=== PATIENT | female | born 1960 | race Caucasian/White ===

== ENCOUNTER 2022-06-26 11:12 | Outpatient (CLI) | payer OTHER | END 2022-06-26 11:13 | disposition home or self-care (01) | LOC: CSHMAMMO 11:12 | PROVIDERS: ATTEND Family Medicine | DX: Z12.31 Encounter for screening mammogram for malignant neoplasm of breast (principal) | CPT/HCPCS: 77063; 77067 ==

== ENCOUNTER 2023-06-09 16:10 | Outpatient (CLI) | payer BC | END 2023-06-09 16:11 | disposition home or self-care (01) | LOC: CSHRAD 16:10 | PROVIDERS: ATTEND Student in an Organized Health Care Education/Training Program | DX: M79.645 Pain in left finger(s) (principal) ==